=== PATIENT | male | born 1985 | race Caucasian/White ===

== ENCOUNTER 2024-01-23 18:40 | Emergency (ER) | payer SELFPAY ==
[2024-01-23] VITALS (10 sets, daily range): BP systolic 122–152; BP diastolic 60–75; PULSE 92–118; RESP 13–28; TEMP 37; O2SAT 97–100; BMI 22.2
--- NOTE | 2024-01-23 18:52 | DI.RAD.S_ITS ---
PROCEDURE: XR CHEST 1V INDICATIONS: suspected sepsis TECHNIQUE: One view of the chest was acquired. COMPARISON: None. FINDINGS: Surgical changes and devices: None. Lungs and pleura: Lungs are clear. No pleural effusions or pneumothorax. Mediastinum: Mediastinal contours appear normal. Heart size is normal. Bones and chest wall: No suspicious bony lesions. Overlying soft tissues appear unremarkable. IMPRESSION: No acute cardiopulmonary abnormality is seen. Dictated by: Lexa Chatman M.D. on 01/23/2024 at 19:30 Approved by: Lexa Chatman M.D. on 01/23/2024 at 19:30
--- NOTE | 2024-01-23 19:16 | ED.GENADULT ---
HPI - General Adult General Chief complaint: Abdominal Pain Stated complaint: difficulty breathing Time Seen by Provider: 01/23/24 19:03 Source: patient Mode of arrival: Ambulatory History of Present Illness HPI narrative: 38-year-old male with no reported past medical history presents by private vehicle for bilateral flank pain, difficulty urinating, shortness of breath. Patient states that he has had back pain for the last day or so, but has not thought much of it. He is here in [place] to get groceries and while driving to the store he states that his pain worsened, causing him to come to the ED instead. Patient reports history of viral pneumonia last year that turned into sepsis and he is concerned that he may have sepsis again. Related Data Allergies Allergy/AdvReac Type Severity Reaction Status Date / Time Penicillins Allergy Verified 01/23/24 18:48 Patient History Social History Smoking Status: Current every day smoker Smoking Status: Current every day smoker tobacco type: cigarettes and vaping Substance Use Type: marijuana Exam Initial Vital Signs Initial Vital Signs: Vital Signs Temperature 98.6 F 01/23/24 18:48 Pulse Rate 114 H 01/23/24 18:48 Respiratory Rate 22 01/23/24 18:48 Blood Pressure 152/62 H 01/23/24 18:48 Pulse Oximetry 100 01/23/24 18:48 Oxygen Delivery Method Room Air 01/23/24 18:48 Const: Awake, alert, no acute distress, nontoxic appearing Cardiac: Tachycardia, regular rhythm RESP: unlabored, clear bilaterally, no wheezing MSK: No midline tenderness, bilateral paraspinal lumbar tenderness Skin: Warm, Dry, intact, no rashes Neuro: AO x3, CN II-XII grossly intact, moves all extremities Course Orders Ordered: Discontinued Medications Albuterol/Ipratropium (Albuterol/Ipratropium 3 Ml Ampul) 3 ml INH NOW ONE Stop: 01/23/24 20:55 Last Admin: 01/23/24 21:06 Dose: 3 ml Documented By: FARHAT Sodium Chloride (Normal Saline 0.9%) 1,000 mls @ 1,000 mls/hr IV BOLUS ONE Stop: 01/23/24 19:51 Last Infusion: 01/23/24 20:34 Dose: Infused Documented By: Admin: 01/23/24 19:30 Dose: 1,000 mls/hr Documented By: CUBA Ceftriaxone Sodium 2,000 mg/ (Sodium Chloride) 100 mls @ 200 mls/hr IV NOW ONE Stop: 01/23/24 18:57 Last Infusion: 01/23/24 20:10 Dose: Infused Documented By: Admin: 01/23/24 19:30 Dose: 200 mls/hr Documented By: CUBA Ketorolac Tromethamine (Ketorolac 30 Mg/Ml Vial) 15 mg IV NOW ONE Stop: 01/23/24 19:19 Last Admin: 01/23/24 19:30 Dose: 15 mg Documented By: CUBA Ondansetron HCl (Ondansetron 4 Mg/2 Ml Inj) 4 mg IV NOW PRN PRN Reason: Nausea And Vomiting Ondansetron HCl (Ondansetron 4 Mg Odt) 4 mg SL NOW PRN PRN Reason: Nausea And Vomiting Vital Signs Vital signs: Vital Signs - 8 hr 01/23/24 20:30 01/23/24 20:30 01/23/24 21:00 Pulse Rate 103 H Respiratory Rate 21 Blood Pressure 132/73 132/60 Pulse Oximetry 99 Oxygen Delivery Method Oxygen Flow Rate Fraction of Inspired Oxygen 01/23/24 21:00 01/23/24 21:06 01/23/24 21:29 Pulse Rate 107 H 92 H Respiratory Rate 21 18 Blood Pressure 122/68 Pulse Oximetry 99 97 Oxygen Delivery Method Room Air Oxygen Flow Rate 0 Fraction of Inspired Oxygen 21 01/23/24 21:29 01/23/24 21:30 Pulse Rate 118 H 102 H Respiratory Rate 23 28 H Blood Pressure Pulse Oximetry 99 Oxygen Delivery Method Oxygen Flow Rate Fraction of Inspired Oxygen Medical Decision Making Lab Data 01/23/24 19:14 01/23/24 19:14 Labs: Lab Results 01/23/24 Range/Units 19:14 WBC 6.6 (4.5-11.0) X10^3/uL RBC 4.95 (4.5-5.9) X10^6/uL Hgb 15.1 (13.5-17.5) g/dL Hct 44.8 (41-53) % MCV 90.4 (80-100) fL MCH 30.6 (26-34) PG MCHC 33.8 (30-36) % RDW 12.8 (11.6-14.8) % Plt Count 245 (150-400) X10^3/uL Neut % (Auto) 89.4 H (50-75) % Lymph % (Auto) 2.7 L (25-40) % [place] % (Auto) 6.7 (3-14) % Eos % (Auto) 0.7 L (2-4) % Baso % (Auto) 0.5 (0-2) % Neut # (Auto) 5900 (8904-2447) /uL Lymph # (Auto) 200 L (5406-2277) /uL [place] # (Auto) 400 (0-900) /uL Eos # (Auto) 0 (0-450) /uL Baso # (Auto) 0 (0-100) /uL PT 11.2 (9.4-12.5) SECONDS INR 1.0 (0.9-1.3) APTT 32 (25.1-36.5) SECONDS Sodium 134 L (137-145) mmol/L Potassium 3.8 (3.4-5.1) mmol/L Chloride 102 (98-107) mmol/L Carbon Dioxide 25 (22-32) mmol/L BUN 22 H (9-20) mg/dL Creatinine 1.10 (0.66-1.25) mg/dL Estimated GFR > 60 (>60) mL/min BUN/Creatinine Ratio 20.0 (6-22) Glucose 93 (70-100) mg/dL Lactate 1.1 (0.7-2.1) mmol/L Calcium 9.6 (8.4-10.2) mg/dL Total Bilirubin 0.5 (0.2-1.3) mg/dL AST 34 (17-59) IU/L ALT 12 (<50) IU/L Alkaline Phosphatase 87 (38-126) U/L Total Creatine Kinase 254 H (55-170) U/L Troponin I < 0.012 (0.01-0.034) ng/mL Total Protein 7.4 (6.3-8.2) g/dL Albumin 4.2 (3.5-5.0) g/dL Globulin 3.2 (1.7-4.1) g/dL Albumin/Globulin Ratio 1.3 (1.0-2.8) Lipase 66 (23-300) U/L Procalcitonin 0.063 (<0.5) ng/mL Urine Dip Bedside Urine Glucose Negative Bedside Urine Bilirubin - Negative Bedside Urine Ketone +/- 5 Urine Specific [place] 1.020 Bedside Urine Occult Blood - Negative Bedside Urine pH 6.5 Bedside Urine Protein - Negative Bedside Urine Urobilinogen - Negative Bedside Urine Nitrite - Negative Bedside Urine Leukocytes - Negative Esterase Point of care testing: Urine Dip Bedside Urine Glucose Negative Bedside Urine Bilirubin - Negative Bedside Urine Ketone +/- 5 Urine Specific [place] 1.020 Bedside Urine Occult Blood - Negative Bedside Urine pH 6.5 Bedside Urine Protein - Negative Bedside Urine Urobilinogen - Negative Bedside Urine Nitrite - Negative Bedside Urine Leukocytes - Negative Esterase Imaging Data Chest x-ray: Radiologist's Impression: PROCEDURE: XR CHEST 1V INDICATIONS: suspected sepsis TECHNIQUE: One view of the chest was acquired. COMPARISON: None. FINDINGS: Surgical changes and devices: None. Lungs and pleura: Lungs are clear. No pleural effusions or pneumothorax. Mediastinum: Mediastinal contours appear normal. Heart size is normal. Bones and chest wall: No suspicious bony lesions. Overlying soft tissues appear unremarkable. IMPRESSION: No acute cardiopulmonary abnormality is seen. Dictated by: Lexa Chatman M.D. on 01/23/2024 at 19:30 Approved by: Lexa Chatman M.D. on 01/23/2024 at 19:30 ECG Data Interpretation: Sinus tachycardia at 112 beats per minute. Normal CO, no ST T wave changes MDM Narrative Medical decision making narrative: Patient presents with the above complaint. He was noted to be slightly tachycardic on arrival, however patient states that his normal heart rate is around 100-110 beats per minute. When resting comfortably in bed heart rate hovers around 100 beats per minute, when ED staff entered the room heart rate increases to 115-120 beats per minute. Patient states that he was an albuterol inhaler at home and thinks that a nebulizer would potentially help his symptoms. Patient's lungs are clear bilaterally, however a DuoNeb will be ordered. Laboratory work reviewed, WBC count 6.6, hemoglobin 15.1, platelet count 245, sodium 134, potassium 3.8, creatinine 1.10, troponin undetectable, procalcitonin 0.063. Chest x-ray negative for acute findings. Point of care urinalysis negative for signs of infection. Patient reassessed, resting comfortably in bed, states that he feels better after Toradol and DuoNeb administration. No evidence of sepsis at this time. Patient counseled on lab and imaging findings. He was advised that he should follow up with a primary care doctor, particularly if he has resting tachycardia, as this may need to be medically treated in the future. Patient was given a referral number available [facility] primary care doctors taking new patients. ED return precautions discussed at bedside. Discharge Plan Departure Patient Disposition: Home Clinical Impression: Breath shortness Instructions: DI for Shortness of Breath Activity Restrictions/Additional Instructions: Your laboratory work, urinalysis, and chest x-ray did not point to signs of sepsis at this time. You did have a borderline elevated heart rate while resting, which you told me is normal for you. I do recommend following up with a primary care doctor, use the phone number on the business card provided for available providers. Stand Alone Forms: Patient Portal/API
[2024-01-23] MEDS: SODIUM CHLORIDE 0.9% 1,000 ML 1000 ML IV (19:30)
[2024-01-23] MEDS: cefTRIAXone 2,000 MG in SODIUM CHLORIDE 0.9% 100 ML 200 MG IV (19:30)
[2024-01-23] MEDS: KETOROLAC 30 MG/ML VIAL 15 MG IV (19:30)
[2024-01-23 19:47] LABS: Add Manual Diff / Slide Review NO; Basophils Absolute Auto 0 /uL (0-100); Basophils Percent Auto 0.5 % (0-2); Eosinophils Absolute Auto 0 /uL (0-450); Eosinophils Percent Auto 0.7 % (2-4); Hematocrit 44.8 % (41-53); Hemoglobin 15.1 g/dL (13.5-17.5); Lymphocytes Absolute Auto 200 /uL (1100-4500); Lymphocytes Percent Auto 2.7 % (25-40); Mean Corpuscular HGB Conc 33.8 % (30-36); Mean Corpuscular Hemoglobin 30.6 PG (26-34); Mean Corpuscular Volume 90.4 fL (80-100); Monocytes Absolute Auto 400 /uL (0-900); Monocytes Percent Auto 6.7 % (3-14); Neutrophils Absolute Auto 5900 /uL (1500-7000); Neutrophils Percent Auto 89.4 % (50-75); Platelet Count 245 X10^3/uL (150-400); Red Blood Cell Count 4.95 X10^6/uL (4.5-5.9); Red Cell Distribution Width 12.8 % (11.6-14.8); White Blood Cell Count 6.6 X10^3/uL (4.5-11.0)
[2024-01-23 19:56] LABS: Prothrombin Time 11.2 SECONDS (9.4-12.5)
[2024-01-23 19:59] LABS: PTT Partial Thromboplastin Tim 32 SECONDS (25.1-36.5)
[2024-01-23 20:00] LABS: Lactate (Lactic Acid) 1.1 mmol/L (0.7-2.1)
[2024-01-23 20:02] LABS: Alanine Aminotransferase 12 IU/L (<50); Albumin 4.2 g/dL (3.5-5.0); Albumin Globulin Ratio 1.3 (1.0-2.8); Alkaline Phosphatase 87 U/L (38-126); Aspartate Aminotransferase 34 IU/L (17-59); Bilirubin Total 0.5 mg/dL (0.2-1.3); Blood Urea Nitrogen 22 mg/dL (9-20); Calcium 9.6 mg/dL (8.4-10.2); Carbon Dioxide 25 mmol/L (22-32); Chloride 102 mmol/L (98-107); Estimated Glomerular Filt Rate > 60 mL/min (>60); Globulin 3.2 g/dL (1.7-4.1); Glucose 93 mg/dL (70-100); HEMOLYSIS < 15 (0-50); Lipase 66 U/L (23-300); Potassium 3.8 mmol/L (3.4-5.1); Sodium 134 mmol/L (137-145); Total Protein 7.4 g/dL (6.3-8.2)
[2024-01-23 20:17] LABS: Procalcitonin 0.063 ng/mL (<0.5)
--- NOTE | 2024-01-23 21:01 | EKG_ITS ---
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
[2024-01-23 21:06] LABS: Creatine Kinase 254 U/L (55-170)
[2024-01-23] MEDS: ALBUTEROL/IPRATROPIUM 3 ML AMPUL INH (21:06)
[2024-01-23 21:19] LABS: Troponin I < 0.012 ng/mL (0.01-0.034)
== END 2024-01-23 21:30 | disposition home or self-care (01) ==
PROVIDERS: Emergency Provider Emergency Medicine
DX: R06.02 Shortness of breath (principal); R00.0 Tachycardia, unspecified; R30.0 Dysuria
CPT/HCPCS: 36415; 71045; 80053; 81003; 82550; 83605; 83690; 84145; 84484; 85025; 85610; 85730; 87040; 93005; 96365; 96375; 99284; J0696; J1885

== ENCOUNTER 2025-02-24 21:55 | Emergency (ER) | payer OTHER, SELFPAY ==
[2025-02-24 22:05] VITALS: BP 135/83; PULSE 107; RESP 17; TEMP 36.6; O2SAT 100; BMI 22.2
[2025-02-24 22:26] LABS: Culture Indicated Urine Specimen Cultured
--- NOTE | 2025-02-24 23:01 | ED_ITS ---
HPI - General Adult General Chief complaint: Urogenital-Male Stated complaint: kidney stone , urogenital male Time Seen by Provider: 02/24/25 22:11 Source: patient Mode of arrival: Ambulatory History of Present Illness HPI narrative: 39-year-old gentleman with no documented medical history comes in concerned that he may have kidney stone. He notes over the last 2 days he has been having dysuria and pain around the urethral meatus. He does not report abdominal or flank pain. He has noticed some swelling around the glans of his penis. Notes that he has a single female partner only. No diarrhea, palpitations, chest pain, nausea. He states that he is chronically tachycardic. Related Data Previous Rx's ?Medication ?Instructions ?Recorded doxycycline hyclate 100 mg capsule 100 mg PO BID #14 c aps 02/24/25 Allergies Allergy/AdvReac Type Severity Reaction Status Date / Time Penicillins Allergy Verified 02/24/25 22:05 Review of Systems Review of Systems Narrative: Pertinent positive and negative findings as per HPI Patient History Smoking Status: Current every day smoker tobacco type: cigarettes and vaping Exam Initial Vital Signs Initial Vital Signs: Vital Signs Temperature 98 F 02/24/25 22:05 Pulse Rate 107 H 02/24/25 22:05 Respiratory Rate 17 02/24/25 22:05 Blood Pressure 135/83 02/24/25 22:05 Pulse Oximetry 100 02/24/25 22:05 Oxygen Delivery Method Room Air 02/24/25 22:05 General: Alert appropriate in no acute distress Respiratory: Able to speak in full sentences, no obvious respiratory distress Abdomen: Soft, nontender nondistended. No suprapubic tenderness no flank tenderness exam: Is minor inguinal adenopathy bilaterally. No skin changes or vesicles. The urethral meatus is erythematous and irritated appearing with some slight swelling over the dorsal portion of the glands. No obvious discharge noted. Testicular pain or tenderness Skin: No obvious rashes, warm and dry Neurologic: Grossly intact no obvious asymmetries or abnormalities Psych: Cooperative but slight psychomotor agitation Course Orders Ordered: ED Orders 02/24/25 22:15 Urine Culture Stat Urine Microscopic Stat 02/24/25 23:00 Chlamydia Gonorrhea PCR -URINE Stat Vital Signs Vital signs: Vital Signs - 8 hr 02/24/25 22:05 Temperature 98 F Pulse Rate 107 H Respiratory Rate 17 Blood Pressure 135/83 Pulse Oximetry 100 Oxygen Delivery Method Room Air Medical Decision Making Lab Data Labs: Lab Results 02/24/25 Range/Units 22:15 Urine RBC 0-1/hpf (0-5/HPF) Urine WBC 30-100/hpf H (0-5/HPF) Ur Squamous Epith Cells 0-1 /hpf (0-5/HPF) Urine Bacteria Occasional (0-1) (None) Urine Mucus 2+ H (Negative) Ur Culture Indicated? Specimen cultured Vol Urine Centrifuged 10ml (spun) Urine Dip Bedside Urine Glucose Negative Bedside Urine Bilirubin - Negative Bedside Urine Ketone - Negative Urine Specific [place] 1.025 Bedside Urine Occult Blood - Negative Bedside Urine pH 6.0 Bedside Urine Protein - Negative Bedside Urine Urobilinogen - Negative Bedside Urine Nitrite - Negative Bedside Urine Leukocytes +++ 500 Esterase Point of care testing: Urine Dip Bedside Urine Glucose Negative Bedside Urine Bilirubin - Negative Bedside Urine Ketone - Negative Urine Specific [place] 1.025 Bedside Urine Occult Blood - Negative Bedside Urine pH 6.0 Bedside Urine Protein - Negative Bedside Urine Urobilinogen - Negative Bedside Urine Nitrite - Negative Bedside Urine Leukocytes +++ 500 Esterase MDM Narrative Medical decision making narrative: 39-year-old gentleman presents concerned that he may have a kidney stone however he has no flank pain and he does have 48 hours of urethral irritation and tenderness. Mild inguinal adenopathy. More likely diagnosis at this point is sexually transmitted infection. Reviewed these findings with him. There was no signs of sepsis and I have not recommended any imaging studies or blood work. With shared decision-making we opted to test him for both gonorrhea and chlamydia and empirically treat for both. If either is positive he will be contacted and we will need to discuss this with any partners that he has. Is very clear that he does not have sex with men or anal intercourse. Discharge Plan Departure Patient Disposition: Home Clinical Impression: Dysuria, Irritation of urethral meatus Instructions: DI for Kidney Stones, DI for Gonorrhea, DI for Chlamydia Activity Restrictions/Additional Instructions: Thank you for coming in today The irritation of your penis does look quite uncomfortable. I am not seeing any sores or blisters at this time. You do have a bit of swollen lymph nodes at the base of your penis. This presentation is more suggestive of a sexually transmitted infection such as gonorrhea or chlamydia or something as simple as a bladder infection rather than a kidney stone. I have tested your urine for both gonorrhea and chlamydia and with your permission have treated you for both of these. The shot was for the gonorrhea and the 7 days of antibiotics as for the chlamydia. If the tests do return positive, you have been treated but you should share this information with any other sexual partners so that they to can be tested and treated If you find that you are getting worse or developing new symptoms that would be very appropriate to return to the emergency department Prescriptions: New doxycycline hyclate 100 mg capsule 100 mg PO BID Qty: 14 0RF Stand Alone Forms: Patient Portal/API
[2025-02-24] MEDS: LIDOCAINE 1% (PF) 5 ML 2.1 ML INJ (23:22)
[2025-02-24] MEDS: DOXYCYCLINE HYCLATE 100 MG TABLET PO (23:22)
[2025-02-24 23:34] VITALS: BP 122/69; PULSE 87; RESP 16; O2SAT 100
[2025-02-25 01:20] LABS: Urine N gonorrhoeae DETECTED
[2025-02-25 01:25] LABS: Urine Chlamydia NOT DETECTED
== END 2025-02-24 23:34 | disposition home or self-care (01) ==
PROVIDERS: Emergency Provider Emergency Medicine
DX: R30.0 Dysuria (principal); F17.210 Nicotine dependence, cigarettes, uncomplicated; N36.8 Other specified disorders of urethra
CPT/HCPCS: 81003; 81015; 87086; 87491; 87591; 96372; 99283; J0696